=== PATIENT | female | born 1990 | race Caucasian/White ===

== ENCOUNTER 2019-05-02 10:39 | Day surgery (SDC) | payer OTHER ==
[2019-05-02] VITALS (15 sets, daily range): BP systolic 109–174; BP diastolic 58–81; PULSE 70–122; RESP 14–21; Ht 162.6 cm; Wt 74.1 kg
[~2019-05-02] VITALS: Ht 162.6 cm; Wt 74.1 kg
[2019-05-02] MEDS ORDERED: SOD CHLORIDE 0.9% 1,000 ML IV SCH (12:00)
[2019-05-02] MEDS ORDERED: GLYCOPYRROLATE 0.4 MG INJ ONE ×2 (12:03→13:45)
[2019-05-02] MEDS ORDERED: ROCURONIUM 50 MG INJ ONE (12:03)
[2019-05-02] MEDS ORDERED: SUCCINYLCHOLINE CHLORIDE 100 MG/5 ML SYG IV ONE (12:03)
[2019-05-02] MEDS ORDERED: LIDOCAINE 2% (SDV) 5 ML INJ ONE (12:03)
[2019-05-02] MEDS ORDERED: PROPOFOL 20 ML ONE (12:03)
[2019-05-02] MEDS ORDERED: NEOSTIGMINE 3 MG/3 ML SYRINGE ONE ×2 (12:03→13:45)
[2019-05-02] MEDS ORDERED: MEPERIDINE 100 MG INJ ONE (12:04)
[2019-05-02] MEDS ORDERED: BUPIVACAINE 0.5%/EPI (SDV) 30 ML INJ ONE (12:07)
[2019-05-02] MEDS ORDERED: CEFAZOLIN 1 GM INJ ONE (13:45)
[2019-05-02] MEDS ORDERED: ONDANSETRON 4 MG INJ ONE (13:45)
[2019-05-02] MEDS ORDERED: METOCLOPRAMIDE 10 MG INJ ONE (13:45)
[2019-05-02] MEDS ORDERED: HYDROmorphONE 1 MG/5 ML IV SYRINGE IV PRN ×3 (14:30)
[2019-05-02] MEDS ORDERED: METOCLOPRAMIDE 10 MG INJ IV PRN (14:30)
[2019-05-02] MEDS ORDERED: MEPERIDINE 25 MG INJ IV PRN (14:30)
[2019-05-02] MEDS ORDERED: OXYCODONE/ACETAMINOPHEN (5/325) TAB PO PRN ×2 (14:30)
[2019-05-02] MEDS ORDERED: ONDANSETRON 4 MG INJ IV PRN ×2 (14:30→15:00)
[2019-05-02] MEDS ORDERED: MIDAZOLAM 1 MG/ML 2 ML INJ IV PRN (14:30)
[2019-05-02] MEDS ORDERED: FENTAnyl 50 MCG/ML VIAL IV PRN ×3 (14:30)
[2019-05-02] MEDS ORDERED: DIPHENHYDRAMINE 50 MG INJ IV PRN (14:30)
[2019-05-02] MEDS ORDERED: HYDROCODONE/APAP (5/325) TAB PO PRN ×2 (15:00)
[2019-05-02] MEDS ORDERED: IBUPROFEN 600 MG TAB PO PRN (15:00)
[2019-05-02] MEDS ORDERED: KETOROLAC 30 MG INJ IV PRN (15:00)
[2019-05-02] MEDS ORDERED: morphine 2 MG INJ IV PRN (15:00)
== END 2019-05-02 16:40 | disposition home or self-care (01) ==
LOC: SDS 10:39
PROVIDERS: ATTEND Surgery
DX: K80.10 Calculus of gallbladder with chronic cholecystitis without obstruction (principal)
CPT/HCPCS: 47562; 86850; 86900; 86901; 88304; J0690; J1170; J1885; J2175; J2405; J2710; J2765; J3010; Z7512; Z7610